=== PATIENT | female | born 1990 | race Caucasian/White ===

== ENCOUNTER → 2025-05-08 13:46 | Outpatient (REF) | payer BC, SELFPAY | LOC: RCS 13:46 | PROVIDERS: ATTENDING PHYSICIAN Nurse Practitioner Adult Health | DX: Q79.60 Ehlers-Danlos syndrome, unspecified (principal) | CPT/HCPCS: 93306 ==

== ENCOUNTER → 2025-09-21 09:21 | Outpatient (REF) | payer BC, SELFPAY | LOC: HWRAD 09:21 | PROVIDERS: ATTENDING PHYSICIAN Internal Medicine Gastroenterology; FAMILY PHYSICIAN Nurse Practitioner Adult Health | DX: R10.9 Unspecified abdominal pain (principal) | CPT/HCPCS: 76700 ==